=== PATIENT | female | born 1960 | race Caucasian/White ===

== ENCOUNTER 2017-05-25 22:16 | Observation (INO) ==
[2017-05-25 23:05] LABS: Basophils % 0.4 %; Eosinophils # 0.1 K/mcL (0.0-0.6); Eosinophils % 1.1 %; Hematocrit 41.8 % (35.3-44.9); Hemoglobin 14.2 g/dL (11.5-15.4); Immature Granulocytes % 0.5 % (0-4); Lymphocytes # 2.5 K/mcL (0.6-4.6); Lymphocytes % 30.4 %; Mean Corpuscular Hemoglobin 28.8 pg (28.0-33.3); Mean Corpuscular Volume 84.8 fL (83.0-100.0); Mean Platelet Volume 9.9 fL (9.4-12.4); Monocytes # 0.8 K/mcL (0.0-1.3); Monocytes % 9.6 %; Neutrophils # 4.7 K/mcL (1.6-8.9); Platelet Count 255 K/mcL (140-400); Red Blood Count 4.93 M/mcL (3.82-4.97); Red Cell Distribution Width 13.2 % (11.5-14.5)
[2017-05-25 23:11] LABS: INR 1.1
[2017-05-25 23:13] LABS: Activated Partial Thrombo Time 30.7 Seconds (26.0-36.0)
[2017-05-25 23:25] LABS: BUN/Creatinine Ratio 17 (6-26); Blood Urea Nitrogen 16 mg/dL (6-20); Calcium 9.4 mg/dL (8.6-10.3); Carbon Dioxide 25 mEq/L (23-29); Chloride 106 mEq/L (98-107); Glucose 111 mg/dL (70-105); Osmolality,Calculated 292 (280-300); Potassium 3.8 mEq/L (3.5-5.1); Sodium 140 mEq/L (136-145); Troponin I < 0.03 ng/mL (< 0.04); eGFR For African Americans > 60 (> 60); eGFR For Non-African Americans > 60 (> 60)
[2017-05-25] MEDS ORDERED: Nitroglycerin 0.4 MG TAB.SUBL SL ONE (23:44)
[2017-05-25] MEDS ORDERED: Aspirin 81 MG TAB.CHEW PO ONE (23:44)
[2017-05-25 23:54] LABS: Alanine Aminotransferase 25 Units/L (7-52); Albumin 4.3 g/dL (3.5-5.7); Albumin/Globulin Ratio 1.4 (1.1-2.2); Alkaline Phosphatase 73 Units/L (34-104); Aspartate Amino Transferase 23 Units/L (13-39); Bilirubin,Direct 0.1 mg/dL (0.0-0.2); Bilirubin,Indirect 0.4 mg/dL (0.0-1.2); Bilirubin,Total 0.5 mg/dL (0.3-1.0); Lipase 37 Units/L (11-82); Total Protein 7.3 g/dL (6.4-8.9)
--- NOTE | 2017-05-26 00:21 | Emergency Department Note ---
Disposition Clinical Impression: Chest pain Qualifiers: Chest pain type: unspecified Qualified Code(s): R07.9 - Chest pain, unspecified Disposition: Admitted As Inpatient Condition: Good Time of Disposition: 01:10 Chest Pain HPI - General Chief Complaint: ED Chest Pain Stated Complaint: Chest Pain, leilani Time Seen by Provider: 05/25/17 23:02 Vital Signs Reviewed: Yes Nursing Notes Reviewed: Yes - History of Present Illness HPI Narrative: 57-year-old female nonsmoker presents with chest pain and shortness of breath. She mentions her symptoms started approximately 14 hours prior to arrival. She states that they have Been constant. Chest pain worse with walking and exertion. Shortness of breath worse with exertion and with breathing and. She also mentions some neck pain that started earlier today. She mentions a recent URI which has been "minor was "in her opinion. She mentioned she was recently treated with reflux by her primary care provider. She is coming by her sister, who mentions that she herself had had chest pain once and was diagnosed with a a gallbladder disorder. Patient denies any hemoptysis, palpitations, diaphoresis, Sascha pain, back pain, nausea. Severity scale (1-10): 7 - Related Data Home Medications Medication Instructions Recorded Confirmed Eszopiclone [Lunesta] 1 mg PO HS PRN 05/26/17 05/26/17 Levothyroxine [Synthroid] 88 mcg PO 0630 05/26/17 05/26/17 Loratadine [Claritin] 10 mg PO PRN PRN 05/26/17 05/26/17 Allergies Allergy/AdvReac Type Severity Reaction Status Date / Time No Known Allergies Allergy Verified 05/25/17 22:23 All systems ED: reviewed and negative except as stated. Review of Systems: As Per HPI Constitutional: Denies: fever, chills, weakness Eyes: Denies: eye discharge ENT ED: Denies: throat pain Cardiovascular: Reports: as per HPI Respiratory: Reports: as per HPI. Denies: wheezes Gastrointestinal: Denies: abdominal pain, nausea, vomiting Genitourinary: Denies: dysuria Musculoskeletal: Reports: as per HPI. Denies: back pain Integumentary: Denies: rash Neurological: Denies: headache Hematological/Lymphatic: Denies: easy bleeding Allergic/Immunologic: Denies: facial swelling Chest Pain PMH - Past Medical History Medical history: Reports: cancer, GERD, thyroid disease - Social History Smoking Status: Former smoker Alcohol use: Reports: rarely Drug use: Reports: none Physical Exam - General Limitations: no limitations General appearance: alert, in no apparent distress - Head Head exam: normocephalic - Eye Eye exam: Present: EOMI. Absent: conjunctival injection - ENT ENT exam: mucous membranes moist - Neck Neck exam: Present: full ROM - Chest Chest inspection: Present: symmetric chest wall rise - Respiratory Respiratory exam: Present: normal lung sounds bilaterally. Absent: respiratory distress - Cardiovascular Cardiovascular exam: Present: regular rate, normal rhythm, tachycardia - Abdominal Exam Abdominal exam: Present: soft, Non-Tender - Extremities Exam Extremities exam: Present: normal inspection, full ROM, normal capillary refill - Back Exam Back exam: Present: full ROM. Absent: CVA tenderness (R), CVA tenderness (L) - Neurological Exam Neurological exam: Present: alert, oriented X3 - Psychiatric Psychiatric exam: Present: normal affect, normal mood - Skin Skin exam: Present: warm, dry, intact, normal color. Absent: rash, cyanosis, diaphoresis Course Course Narrative: Patient presents with chest pain and shortness of breath. Patient seen and examined. She does describe worsening with exertion. No previous CAD, cardiac workup. He denied any abdominal pain, however On examination she has some mild right upper quadrant tenderness, with palpation. She was slightly tachycardic on initial assessment, however shortly after on reassessment after rest, her vital signs improved. EKG no acute signs of ischemia, sinus rhythm, left axis deviation, LVH, possible anterior LA, probably will Workup initiated. Aspirin ordered. We will do a trial of nitroglycerin. - Reevaluation(s) Reevaluation #1: Chest x-ray unremarkable. Per nursing, patient's pain had improved after nitroglycerin. I had discussed with Dr. Menedz, who did have face time with winifred. Work up unremarkable, Heart Score of 4, improvement of pain after nitro. CP with worsening on exertion and SOB. Will plan for admission for ACS rule out. Hepatic and lipase labs within normal limits. Less concerning for GI pain, but patient may benefit from right upper quadrant ultrasound. Time: 00:24 Reevaluation #2: BP 127/88, HR 82, 94% on room air. Patient discussed with and accepted by hospitalist Time: 01:09 Vital Signs Temperature 98.3 F 05/25/17 22:19 Pulse Rate 111 05/25/17 22:19 Respiratory Rate 18 05/25/17 22:19 Blood Pressure 166/109 05/25/17 22:19 O2 Sat by Pulse Oximetry 99 05/25/17 22:19 Temperature 97.8 F 05/26/17 07:00 Pulse Rate 68 05/26/17 07:00 Respiratory Rate 16 05/26/17 07:00 Blood Pressure 101/65 05/26/17 07:00 O2 Sat by Pulse Oximetry 97 05/26/17 07:00 Oxygen Delivery Oxygen Delivery Room Air Chest Pain - MDM Narrative Medical decision making narrative: Patient had presented with chest pain, shortness of breath. He did appear to be exertional. She did have improvement on nitroglycerin. She does describe a history of thyroid disorder, gastric reflux. Additionally she does mention she has had discussions with her PCP regarding possible hypertension, but tells me that she is not taking medications for this. Additionally She has no recent cardiac evaluation. She does have a history of breast cancer, currently cancer free. However she is not hypoxic, and or tachycardic. This does not appear to be consistent with pulmonary embolism. I had ordered a hepatic panel and lipase , because on examination she did have some tenderness with palpation to her right upper quadrant, however these lab works appear to be within normal limits. Less concerning for any biliary or pancreatic conditions. I did discuss patient with Dr. Mendez who also had face time with patient agreed with workup and evaluation. Patient was accepted to hospitalist for further evaluation, as well as ACS rule out. Patient was in agreement. Chest X-Ray 05/25/17 22:38 IMPRESSION: No acute cardiopulmonary disease. D/ / Primitivo Westbrook MD / Primitivo Westbrook MD Interpreting Provider: Primitivo Westbrook MD Laboratory Tests 05/25/17 05/25/17 05/25/17 22:38 22:48 22:48 WBC 8.1 RBC 4.93 Hgb 14.2 Hct 41.8 MCV 84.8 MCH 28.8 MCHC 34.0 RDW 13.2 Plt Count 255 MPV 9.9 Immature Gran % 0.5 Seg Neutrophils % 58.0 Lymphocytes % 30.4 Monocytes % 9.6 Eosinophils % 1.1 Basophils % 0.4 Neutrophils # 4.7 Lymphocytes # 2.5 Monocytes # 0.8 Eosinophils # 0.1 Basophils # 0.0 PT 12.0 INR 1.1 APTT 30.7 Sodium 140 Potassium 3.8 Chloride 106 Carbon Dioxide 25 BUN 16 Creatinine 0.93 Est GFR ( Amer) > 60 Est GFR (Non-Af Amer) > 60 BUN/Creatinine Ratio 17 Glucose 111 H Calculated Osmolality 292 Calcium 9.4 Total Bilirubin 0.5 Direct Bilirubin 0.1 Indirect Bilirubin 0.4 AST 23 ALT 25 Alkaline Phosphatase 73 Troponin I < 0.03 Serum Total Protein 7.3 Albumin 4.3 Globulin 3.0 Albumin/Globulin Ratio 1.4 Lipase 37 - Lab Data Lab results reviewed: Yes I reviewed the patient's lab results. Result diagrams: 05/25/17 22:48 05/25/17 22:48 Lab Results 05/25/17 05/25/17 05/25/17 Range/Units 22:38 22:48 22:48 WBC 8.1 (4.3-11.1) K/mcL RBC 4.93 (3.82-4.97) M/mcL Hgb 14.2 (11.5-15.4) g/dL Hct 41.8 (35.3-44.9) % MCV 84.8 (83.0-100.0) fL MCH 28.8 (28.0-33.3) pg MCHC 34.0 (31.6-35.5) g/dL RDW 13.2 (11.5-14.5) % Plt Count 255 (140-400) K/mcL MPV 9.9 (9.4-12.4) fL Immature Gran % 0.5 (0-4) % Seg Neutrophils % 58.0 % Lymphocytes % 30.4 % Monocytes % 9.6 % Eosinophils % 1.1 % Basophils % 0.4 % Neutrophils # 4.7 (1.6-8.9) K/mcL Lymphocytes # 2.5 (0.6-4.6) K/mcL Monocytes # 0.8 (0.0-1.3) K/mcL Eosinophils # 0.1 (0.0-0.6) K/mcL Basophils # 0.0 (0.0-0.2) K/mcL PT 12.0 (9.4-12.1) Seconds INR 1.1 APTT 30.7 (26.0-36.0) Seconds Sodium 140 (136-145) mEq/L Potassium 3.8 (3.5-5.1) mEq/L Chloride 106 (98-107) mEq/L Carbon Dioxide 25 (23-29) mEq/L BUN 16 (6-20) mg/dL Creatinine 0.93 (0.60-1.20) mg/dL Est GFR ( Amer) > 60 (> 60) Est GFR (Non-Af Amer) > 60 (> 60) BUN/Creatinine Ratio 17 (6-26) Glucose 111 H (70-105) mg/dL Calculated Osmolality 292 (280-300) Calcium 9.4 (8.6-10.3) mg/dL Total Bilirubin 0.5 (0.3-1.0) mg/dL Direct Bilirubin 0.1 (0.0-0.2) mg/dL Indirect Bilirubin 0.4 (0.0-1.2) mg/dL AST 23 (13-39) Units/L ALT 25 (7-52) Units/L Alkaline Phosphatase 73 (34-104) Units/L Troponin I < 0.03 (< 0.04) ng/mL Serum Total Protein 7.3 (6.4-8.9) g/dL Albumin 4.3 (3.5-5.7) g/dL Globulin 3.0 (2.4-3.5) g/dL Albumin/Globulin Ratio 1.4 (1.1-2.2) Lipase 37 (11-82) Units/L - Radiology Data Radiology results reviewed: Yes I reviewed the patient's radiology results. - EKG Data EKG attestation: Yes I reviewed and interpreted this EKG. EKG results narrative: Sinus rhythm ventricular rate 93, left axis deviation, voltage criteria for LVH , no evidence of acute ischemia Heart Score - Score History: Slightly Suspicious EKG: Non Specific repolarisation Disturbance Age: 45-65 Risk Factors: Equal/Greater than 3 risk factor or history of atherosclerotic disease Troponin: Less than normal limit HEART Score Total: 4
[2017-05-26] MEDS ORDERED: Naloxone 0.4 MG/ML INJ IVP PRN (01:16)
--- NOTE | 2017-05-26 01:43 | Internal Med History&Physical ---
Date of Encounter: 05/26/17 Time of Encounter: 01:41 Internal Medicine - H&P: HPI Chief complaint: Chest pain Admitted From: Emergency Dept Plans for Post Hospital Care: Home History of present illness: Ms. Scott is a 57 year old female with PMH significant for hypothyroidism who presents with chest pain and shortness of breath. Says that she woke up suddenly in the morning yesterday and had chest pain as about 7 out of 10 with radiation to the neck. Any exertion caused exacerbation of her chest pain. She experienced some diaphoresis. No dizziness spell. This continued throughout the day and she noticed improvement of her chest pain when she sat down. The patient of note says that she had issues with some epigastric to mid chest discomfort for which she was recommended Prevacid by her sister which helped for the last 2 weeks. She last took Prevacid the night prior to her chest pain however she did not take it at all yesterday. She reports that this episode of chest pain was not similar to the ones she was having for the 2 weeks prior. When she presented to the ED she was noted to be hypertensive with a blood pressure of 166/109 which came down with sublingual nitroglycerin. She also received adult dose aspirin. Those resolved her chest pain to about 1-2 out of 10. She is a former smoker and has a history of smoking about half a pack a day for about 15-20 years. The ED workup including EKG, chest x-ray, cardiac enzymes, basic labs were mostly unremarkable. Her glucose was mildly elevated at 111. Denies fever, chills, nausea, vomiting, abdominal pain, diarrhea, constipation, urinary symptoms, or neurological symptoms. Past Med Surg Social Fam HX - Past Medical History Medical history: cancer, GERD, thyroid disease - Social History Smoking Status: Former smoker Alcohol use: rarely Drug use: none - Family History Mother Living Status: Cause of : blood clot Hx Family Cardiac Disorders: Yes Hx Family Neurologic Disorders: Yes (alzheimers) Father Hx Family Cancer: Yes Internal Medicine - H&P: Meds Eszopiclone [Lunesta] 1 mg PO HS PRN 05/26/17 [History] Levothyroxine [Synthroid] 88 mcg PO 0630 05/26/17 [History] Loratadine [Claritin] 10 mg PO PRN PRN 05/26/17 [History] 3 Allergy/AdvReac Type Severity Reaction Status Date / Time No Known Allergies Allergy Verified 05/25/17 22:23 All Systems PM: A 10-system review of systems was performed and is negative for pertinent findings except as documented above in the HPI. Review of systems: All systems reviewed are negative except for what is mentioned above - Constitutional Vitals: Temp Pulse Resp BP Pulse Ox 98.3 F 111 18 166/109 99 05/25/17 22:19 05/25/17 22:19 05/25/17 22:19 05/25/17 22:19 05/25/17 22:19 Exam: GEN: NAD HEENT: AT, NC, No cyanosis, oral mucosa is moist, No JVD Lymphatics: No lymphadenoapthy Eyes: Extrocular muscles intact, anicteric CVS:RRR. S1, S2, No m/r/g RESP: CTAB ABD: Soft, NT, ND, +BS EXT: No edema, No rashes, 2+ DP NEURO: Nonfocal, CN II-XII intact, No focal motor or sensory deficits Psych: Cooperative, Not anxious or depressed Internal Med - H&P Results - Labs CBC & Chem 7: 05/25/17 22:48 05/25/17 22:48 - Assessment and plan (1) Chest pain Current Visit: Yes Status: Acute Assessment and plan: Patient came in with an elevated blood pressure. This may have caused her chest pain for the last 2 weeks however today's chest pain is not the same as the one that she experienced with the 2 weeks prior. We will admit the patient. I did explain to the patient that she will not get a stress test in the morning as it is Saturday. We will trend her cardiac enzymes. I explained to her that if we do a stress test it will not be done until Saturday morning. She was not happy about that. I told her that the other option would be to trend her cardiac enzymes and if they remain not elevated we can possibly discharge and have her follow up for a stress test as an outpatient. I also told her that this would be up to the hospitalist who will see her in the morning if they feel comfortable with that. She will think about those options and give an answer to the morning rounding hospitalist. For now I have ordered a lipid panel and hemoglobin A1c. Will order sublingual nitroglycerin when necessary. Patient received aspirin 324 mg in the ED. Currently chest pain- free. Qualifiers: Chest pain type: unspecified Qualified Code(s): R07.9 - Chest pain, unspecified (2) Elevated blood pressure reading Current Visit: Yes Status: Acute Assessment and plan: Patient carries no diagnosis of hypertension. Her blood pressure was elevated upon presentation and came down with sublingual nitroglycerin. She was initially 166/109 and when I was in the room she was down to the 120s over 80s. However the last reading while I was in the room showed a diastolic blood pressure of 98. I did explain to the patient that she may have undiagnosed hypertension. She was not excited about starting an anti-hypertensive agent. We did come to the agreement that we will watch her blood pressure throughout the night and into the morning and if her blood pressure remains elevated we may have to add an antihypertensive agent at discharge. For now we will use IV hydralazine when necessary. (3) Borderline hyperglycemia Current Visit: Yes Status: Acute Assessment and plan: Check A1c. (4) Hypothyroidism Current Visit: Yes Status: Acute Assessment and plan: Continue home dose levothyroxine. Qualifiers: Hypothyroidism type: unspecified Qualified Code(s): E03.9 - Hypothyroidism , unspecified (5) DVT prophylaxis Current Visit: Yes Status: Acute Assessment and plan: SCDs - Time Spent With Patient Total time spent is greater than 50% in coordination of care (as documented) at patient's floor/unit and/or counseling patient:
--- NOTE | 2017-05-26 02:04 | Emergency Department Note ---
Disposition Clinical Impression: Chest pain Qualifiers: Chest pain type: unspecified Qualified Code(s): R07.9 - Chest pain, unspecified Disposition: Admitted As Inpatient Condition: Good Referrals: NONE,PCP [Primary Care Provider] - General Adult HPI - General Chief complaint: ED Chest Pain Stated complaint: Chest Pain, leilani Time Seen by Provider: 05/25/17 23:02 Limitations: no limitations - History of Present Illness Pain Scale: 7 - Related Data Allergies Allergy/AdvReac Type Severity Reaction Status Date / Time No Known Allergies Allergy Verified 05/25/17 22:23 Constitutional: Denies: fever, chills, weakness Eyes: Denies: eye discharge ENT ED: Denies: throat pain Cardiovascular: Reports: as per HPI Respiratory: Reports: as per HPI. Denies: wheezes Gastrointestinal: Denies: abdominal pain, nausea, vomiting Genitourinary: Denies: dysuria Musculoskeletal: Reports: as per HPI. Denies: back pain Integumentary: Denies: rash Neurological: Denies: headache Hematological/Lymphatic: Denies: easy bleeding Allergic/Immunologic: Denies: facial swelling Past Medical History - Past Medical History Medical history: Reports: cancer, GERD, thyroid disease - Social History Smoking Status: Former smoker Alcohol use: Reports: rarely Drug use: Reports: none Physical Exam - General Limitations: no limitations General appearance: alert, in no apparent distress Course Vital Signs Temperature 98.3 F 05/25/17 22:19 Pulse Rate 111 05/25/17 22:19 Respiratory Rate 18 05/25/17 22:19 Blood Pressure 166/109 05/25/17 22:19 O2 Sat by Pulse Oximetry 99 05/25/17 22:19 Temperature 98.3 F 05/25/17 22:19 Pulse Rate 111 05/25/17 22:19 Respiratory Rate 18 05/25/17 22:19 Blood Pressure 166/109 05/25/17 22:19 O2 Sat by Pulse Oximetry 99 05/25/17 22:19 Oxygen Delivery Oxygen Delivery Room Air Medical Decision Making - Lab Data Result diagrams: 05/25/17 22:48 05/25/17 22:48 Lab Results 05/25/17 05/25/17 05/25/17 Range/Units 22:38 22:48 22:48 WBC 8.1 (4.3-11.1) K/mcL RBC 4.93 (3.82-4.97) M/mcL Hgb 14.2 (11.5-15.4) g/dL Hct 41.8 (35.3-44.9) % MCV 84.8 (83.0-100.0) fL MCH 28.8 (28.0-33.3) pg MCHC 34.0 (31.6-35.5) g/dL RDW 13.2 (11.5-14.5) % Plt Count 255 (140-400) K/mcL MPV 9.9 (9.4-12.4) fL Immature Gran % 0.5 (0-4) % Seg Neutrophils % 58.0 % Lymphocytes % 30.4 % Monocytes % 9.6 % Eosinophils % 1.1 % Basophils % 0.4 % Neutrophils # 4.7 (1.6-8.9) K/mcL Lymphocytes # 2.5 (0.6-4.6) K/mcL Monocytes # 0.8 (0.0-1.3) K/mcL Eosinophils # 0.1 (0.0-0.6) K/mcL Basophils # 0.0 (0.0-0.2) K/mcL PT 12.0 (9.4-12.1) Seconds INR 1.1 APTT 30.7 (26.0-36.0) Seconds Sodium 140 (136-145) mEq/L Potassium 3.8 (3.5-5.1) mEq/L Chloride 106 (98-107) mEq/L Carbon Dioxide 25 (23-29) mEq/L BUN 16 (6-20) mg/dL Creatinine 0.93 (0.60-1.20) mg/dL Est GFR ( Amer) > 60 (> 60) Est GFR (Non-Af Amer) > 60 (> 60) BUN/Creatinine Ratio 17 (6-26) Glucose 111 H (70-105) mg/dL Calculated Osmolality 292 (280-300) Calcium 9.4 (8.6-10.3) mg/dL Total Bilirubin 0.5 (0.3-1.0) mg/dL Direct Bilirubin 0.1 (0.0-0.2) mg/dL Indirect Bilirubin 0.4 (0.0-1.2) mg/dL AST 23 (13-39) Units/L ALT 25 (7-52) Units/L Alkaline Phosphatase 73 (34-104) Units/L Troponin I < 0.03 (< 0.04) ng/mL Serum Total Protein 7.3 (6.4-8.9) g/dL Albumin 4.3 (3.5-5.7) g/dL Globulin 3.0 (2.4-3.5) g/dL Albumin/Globulin Ratio 1.4 (1.1-2.2) Lipase 37 (11-82) Units/L Attestation Statement - Attestation Attestation: I examined this patient and my medical decision-making was reviewed with the Resident Physician. I agree with the documented findings, disposition and treatment plan as described except to the extent set forth below. Patient to ED complaining of chest pressure or shortness of breath this started this morning. Patient's evidence of an relieved on my evaluation of her nitroglycerin. Patient is in no distress on examination with clear lungs and heart regular rate and rhythm. Plan. Patient is admitted. Heart score 4. Workup shows nonspecific ST changes and a negative troponin.
[2017-05-26] MEDS ORDERED: Loratadine 10 MG TABLET PO PRN (04:41)
[2017-05-26 05:36] LABS: Chol/HDL Ratio 3.6 (0-4.9); Cholesterol 204 mg/dL (< 200); HDL Cholesterol 57 mg/dL (40-59); LDL Cholesterol,Calculated 122 mg/dL (0-99); Triglycerides 123 mg/dL (< 150)
[2017-05-26] MEDS: Nitroglycerin 0.4 MG TAB.SUBL SL PRN ×4 (06:20→13:39)
[2017-05-26 06:21] LABS: Troponin I < 0.03 ng/mL (< 0.04)
[2017-05-26 11:25] LABS: Estimated Average Glucose 117 mg/dl; Hemoglobin A1C 5.7 %
[2017-05-26] MEDS ORDERED: *HR* Morphine 2 MG/ML SYRINGE IVP PRN (11:30)
[2017-05-26] MEDS ORDERED: Famotidine 20 MG/2 ML VIAL IVP ONE (13:43)
--- NOTE | 2017-05-26 15:17 | Event Note ---
Date of Encounter: 05/26/17 Time of Encounter: 09:50 Seen and examined with her sister at the bedside Very anxious woman being worked up for chest pain Seen few hrs into her admission , requesting to be transferred to [facility] . Her troponin is negative and her EKg is non-ischemic, her blood pressure was elevated on arrival but improved with nitro and she has no known diagnosis of HTN Physical exam is unremarkable and labs are stable Add treatment for GERD NPO from NH for stress test
[2017-05-26] MEDS: Famotidine 20 MG TABLET PO SCH (20:10)
[2017-05-26] MEDS: Acetaminophen 325 MG TABLET PO PRN (20:10)
[2017-05-27] MEDS ORDERED: Ketorolac 15 MG/ML VIAL IVP ONE (00:33)
[2017-05-27] MEDS ORDERED: Regadenoson 0.4 MG/5 ML SYRINGE IVP ONE (05:56)
[2017-05-27 06:44] VITALS: BP 118/68
[2017-05-27] MEDS: Acetaminophen 325 MG TABLET PO PRN (09:07)
[2017-05-27] MEDS: Famotidine 20 MG TABLET PO SCH (09:07)
--- NOTE | 2017-05-27 09:52 | Discharge Summary ---
- NOTES TO OUTPATIENT PROVIDER Notes to Outpatient Provider: Started on Prevacid for GERD. ACS was ruled out Orders not resulted at time of discharge: Pending orders 05/26/17 08:42 NM dayana perf SPECT multi [NM] Routine Date of Encounter: 05/27/17 Time of Encounter: 08:55 - Discharge Diagnosis (1) Chest pain Priority: Primary Status: Acute Qualifiers: Chest pain type: unspecified Qualified Code(s): R07.9 - Chest pain, unspecified (2) Elevated blood pressure reading Priority: Primary Status: Resolved (3) Borderline hyperglycemia Priority: Primary Status: Resolved (4) DVT prophylaxis Priority: Primary Status: Resolved (5) Hypothyroidism Priority: Secondary Status: Chronic Qualifiers: Hypothyroidism type: unspecified Qualified Code(s): E03.9 - Hypothyroidism , unspecified (6) GERD (gastroesophageal reflux disease) Priority: Secondary Status: Chronic Qualifiers: Esophagitis presence: without esophagitis Qualified Code(s): K21.9 - Gastro -esophageal reflux disease without esophagitis Hospital course: Ms. Scott is a 57 year old female with PMH of Hypothyroidism She was placed on observation due to complains of chest pain Lipid panel, A1C , EKG, 4 sets of troponin were negative Her blood pressure on arrival was elevated but corrected without medications Stress test completed this a.m : Pharmacologic stress ECG is negative for ischemc, no CP/Arrhythmias during stress test, Gated EF >70%, perfusion imaging [id number] for ischemia or infarct, artifact present" Patient's symptoms are more consistent with GERD as her symptoms started abreuptly after she stopped taking prevacid She is ambulatory, tolerating po and discharged home asymptomatic , in stable condition with prevacid prescription Follow up with PCP Discharge discussed with: patient, family, nurse - Time Spent with Patient Total time spent providing and/or coordinating discharge services: Less than 30 minutes - Discharge Medications Prescriptions: Lansoprazole [Prevacid] 30 mg PO DAILY #[address] tab.[address] Rodriguez Medications: Eszopiclone [Lunesta] 1 mg PO HS PRN 05/26/17 [History] Levothyroxine [Synthroid] 88 mcg PO 0630 05/26/17 [History] Loratadine [Claritin] 10 mg PO PRN PRN 05/26/17 [History] Lansoprazole [Prevacid] 30 mg PO DAILY #30 tab. 05/27/17 [Rx] Allergies/Adverse Reactions: 3 Allergy/AdvReac Type Severity Reaction Status Date / Time No Known Allergies Allergy Verified 05/27/17 11:41 Date of admission: 05/26/17 01:12 Primary care physician: PCP NONE Discharging clinician: Rik Patton Anticipated date of discharge: 05/27/17 - Constitutional Vitals: Temp Pulse Resp BP Pulse Ox 98.3 F 78 16 118/68 95 05/27/17 06:33 05/27/17 06:33 05/27/17 06:33 05/27/17 06:33 05/27/17 09:11 General appearance: Present: A&O X 3, no acute distress - Head Head exam: Present: atraumatic, normocephalic - Eye Eye exam: Present: PERRL, conjuntiva pink, sclera anicteric Pupils: Present: PERRL - Neck Neck exam general surgery: Present: supple, trachea midline. Absent: lymphadenopathy - Respiratory Respiratory exam: Present: CTAB. Absent: accessory muscle use, rales, rhonchi, wheezes - Cardiovascular Cardiovascular exam: Present: RRR, +S1, +S2. Absent: diastolic murmur, gallop, rubs, systolic murmur - GI/Abdominal GI/Abdominal exam: Present: normal bowel sounds, soft, no peritoneal signs. Absent: distended, tenderness - Extremities Exam Extremities exam: Present: warm, radial pulses palpable and symmetrical. Absent : calf tenderness, cyanotic, pedal edema - Neurological Exam Neurological exam: Present: alert, CN II-XII intact, oriented X3, no focal deficits. Absent: pronater drift, facial droop, speech deficit - Skin Skin exam: Present: dry, intact - Patient Status Disposition: Home, Self-Care Condition: Good Functional capacity at discharge: independent ambulation Overall status at discharge: patient is back to baseline - Discharge Instructions Follow Up With: NONE,PCP [Primary Care Provider] - Forms: ED Satisfaction Letter - Diet and Activity Activity: resume usual activities as tolerated Diet: low fat, low cholesterol, low salt diet - VTE Documentation of Mechanical Device: Intermittent pneumatic compression device
--- NOTE | 2017-05-29 00:21 | Electrocardiograph Report ---
[address] [place] [address] Test Date: 2017-05-25 Pat Name: Bailee Scott Department: 104 Room: [facility] Gender: F Operations [place]: MARIELA : 1960 Requested By: Samira See Order Number: [id number] Reading MD: April Todd Measurements Intervals [place] Rate: 93 P: 49 FL: 131 QRS: -39 QRSD: 81 T: 70 QT: 339 QTc: 390 Interpretive Statements SINUS RHYTHM MARKED LEFT AXIS DEVIATION VOLTAGE CRITERIA FOR LVH POSSIBLE ANTERIOR MYOCARDIAL INFARCTION, PROBABLY OLD Electronically Signed On 05-29-2017 0:20:20 EDT by April Todd
== END 2017-05-27 12:54 | disposition home or self-care (01) ==
LOC: 3NENU 22:16 → EMEROO 22:16 → 3NENU 05-26 03:20
PROVIDERS: ADMIT Family Medicine; ATTEND Internal Medicine